=== PATIENT | female | born 1995 | race African-American/Black ===

== ENCOUNTER 2019-08-21 15:10 | Inpatient (IN) | payer OTHER, SELFPAY ==
[2019-08-21 15:49] LABS: #Basophils 0.1 thou/uL (0.0-0.2); #Eosinphils 0.2 thou/uL (0.0-0.7); #Lymphocytes 2.3 thou/uL (1.20-3.40); #Monocytes 0.9 thou/uL (0.11-0.59); #Neutrophils 12.7 thou/uL (1.40-6.50); %Basophils 0.4 % (0.0-1.0); %Lymphocytes 14.5 % (21.0-51.0); %Monocytes 5.5 % (0.0-10.0); %Neutrophils 78.6 % (42.0-75.0); Hemoglobin 10.7 g/dL (12.0-16.0); Mean Corpuscular HGB CONC 31.5 g/dL (32.0-36.0); Mean Corpuscular Hemoglobin 28.1 pg (27.0-31.0); Mean Platelet Volume 7.7 fL (7.4-10.4); Platelet Count 360 thou/uL (130-400); RBC Distribution Width 13.3 % (11.5-14.5); Red Blood Cell (RBC) Count 3.81 mill/uL (4.20-5.40); White Blood Cell (WBC) Count 16.1 thou/uL (4.8-10.8)
[2019-08-21] MEDS ORDERED: Morphine 4 MG/ML VIAL ONE (15:59)
[2019-08-21] MEDS ORDERED: Ketorolac Tromethamine 30 MG/ML VIAL ONE (16:00)
[2019-08-21] MEDS ORDERED: Piperacillin/Tazobactam 4.5 GM VIAL ONE (16:00)
[2019-08-21 16:16] LABS: ALT (SGPT) 23 U/L (8-55); AST (SGOT) 24 U/L (5-34); Albumin 3.9 g/dL (3.5-5.0); Alkaline Phosphatase 86 U/L (40-110); Anion Gap 16 mmol/L (10-20); BUN (Urea Nitrogen) 11 mg/dL (7.0-18.7); Bilirubin, Total 0.3 mg/dL (0.2-1.2); Calc. Creatinine Clearance 0 mL/min (70-130); Calcium 9.2 mg/dL (7.8-10.44); Carbon Dioxide 19 mmol/L (22-29); Chloride 103 mmol/L (98-107); Estimated GFR-MDRD Greater than 90; Globulin 4.9 g/dL (2.4-3.5); Glucose 83 mg/dL (70-105); Potassium 4.4 mmol/L (3.5-5.1); Protein, Total 8.8 g/dL (6.0-8.3); Sodium 134 mmol/L (136-145)
[2019-08-21] MEDS ORDERED: Clindamycin/D5W 900 mg/50 ml Premix Bag ONE (17:10)
[2019-08-21] MEDS ORDERED: Ondansetron PF 4 MG/2 ML Vial ONE (17:10)
--- NOTE | 2019-08-21 18:38 | PDOC.FPRHP ---
- History of Present Illness Chief Complaint: Open wounds in groin & axilla History of Present Illness: Patient is a 23 yo female with PMHx of Hiadrenitis suppurativa (diagnosed age 21 ) who presents with complaint of pain in both axilla and her groin/vaginal area. She has multiple sores in these areas that started in Sep 2018 and have become progressively worse since. She has seen multiple physicians and has received various antibiotics treatments, most recently Clindamycin. She has also been hospitalized at [facility] in [place] earlier this year with similar symptoms. During that hospitalization she says she received antibiotics but was sent home. Denies ever having had surgery for her lesions. Today patient states that her pain has become significantly worse and she is now oozing blood & pus from several of the sites which prompted her to come to ED. ED Course: Given vanc, zosyn, and clinda. Also concern for an elevated WBC count of 16.1, given Morphine 4 mg for pain control. - Allergies/Adverse Reactions Allergies Allergy/AdvReac Type Severity Reaction Status Date / Time No Known Drug Allergies Allergy Verified 08/21/19 22:06 - Home Medications Medication Instructions Recorded Confirmed Type No Known 08/21/19 08/21/19 History - History PMHx: Hidradenitis suppurativa PSHx: none FHx: mother with breast cancer dx age 35, multiple maternal female family members with breast cancer Social: smokes 5 cigarettes/day, drinks EtOH socially - Review of Systems General: denies: fever/chills, weight/appetite/sleep changes, fatigue ENT: denies: nasal congestion Respiratory: denies: cough, congestion, shortness of breath Cardiovascular: denies: chest pain, edema Gastrointestinal: denies: nausea, vomiting, diarrhea, abdominal pain Genitourinary: denies: dysuria Skin: reports: lesions Musculoskeletal: denies: pain, tenderness, swelling Neurological: denies: numbness, weakness - Vital signs BP: 135/85 HR: 90 RR: 18 Tmax: 98.1F Pox: 96% on RA Wt: 111 kg - Physical Exam Constitutional: NAD, awake, alert and oriented, well developed HEENT: normocephalic and atraumatic, EOMI, conjunctiva clear, no scleral icterus , grossly normal vision, grossly normal hearing, MMM Neck: supple Heart: RRR, normal S1/S2, no murmurs/rubs/gallops, pulses present, no edema Lungs: CTAB, no respiratory distress, good air movement, no rales/rhonchi, no wheezing Abdomen: soft, non-tender, bowel sounds present Musculoskeletal: normal structure, normal tone, ROM grossly normal Neurological: no focal deficit, normal sensation -Skin: multiple open areas to skin, severely TTP, with thick white discharge/drainage present in areas of bilateral axilla, groin, and vagina. Heme/Lymphatic: no unusual bruising or bleeding Psychiatric: normal mood and affect, intact recent and remote memory FMR H&P: Results - Labs Result Diagrams: 08/21/19 15:33 08/21/19 15:33 Lab results: WBC 16.1 thou/uL (4.8-10.8) H 08/21/19 15:33 Hgb 10.7 g/dL (12.0-16.0) L 08/21/19 15:33 Hct 33.9 % (36.0-47.0) L 08/21/19 15:33 MCV 89.0 fL (78.0-98.0) 08/21/19 15:33 Plt Count 360 thou/uL (130-400) 08/21/19 15:33 Neutrophils % 78.6 % (42.0-75.0) H 08/21/19 15:33 Sodium 134 mmol/L (136-145) L 08/21/19 15:33 Potassium 4.4 mmol/L (3.5-5.1) 08/21/19 15:33 Chloride 103 mmol/L (98-107) 08/21/19 15:33 Carbon Dioxide 19 mmol/L (22-29) L 08/21/19 15:33 BUN 11 mg/dL (7.0-18.7) 08/21/19 15:33 Creatinine 0.68 mg/dL (0.6-1.1) 08/21/19 15:33 Glucose 83 mg/dL (70-105) 08/21/19 15:33 Lactic Acid 1.0 mmol/L (0.5-2.2) 08/21/19 15:33 Calcium 9.2 mg/dL (7.8-10.44) 08/21/19 15:33 Total Bilirubin 0.3 mg/dL (0.2-1.2) 08/21/19 15:33 AST 24 U/L (5-34) 08/21/19 15:33 ALT 23 U/L (8-55) 08/21/19 15:33 Alkaline Phosphatase 86 U/L (40-110) 08/21/19 15:33 Serum Total Protein 8.8 g/dL (6.0-8.3) H 08/21/19 15:33 Albumin 3.9 g/dL (3.5-5.0) 08/21/19 15:33 FMR H&P: A/P - Problem List (1) Hidradenitis suppurativa Current Visit: Yes Status: Acute Code(s): L73.2 - HIDRADENITIS SUPPURATIVA (2) Leukocytosis, unspecified Current Visit: Yes Status: Acute Code(s): D72.829 - ELEVATED WHITE BLOOD CELL COUNT, UNSPECIFIED Qualifiers: Leukocytosis type: unspecified Qualified Code(s): D72.829 - Elevated white blood cell count, unspecified - Plan Patient is a 23 yo female with complaint of groin pain is admitted for flare of Hidradrenitis suppurativa: #Hidradenitis Suppurativa, Good Stage III -given Clinda, Vanc, & Zosyn in ED--plan to continue Clinda PO and topical as well as Vancomycin -Start prednisone 40 daily -Consider starting adjunctive therapy including OCPs, Metformin, and/or spironolactone -Consult wound care -Check A1c given close correlation with metabolic syndromes -Consult General Surgery tomorrow AM--Dr. Hernández, appreciate recs -Will need Dermatology appt set up at discharge, will need close regular follow up #Leukocytosis -admission WBC 16.1 -Abx as above -AM CBC VTE: SCD Diet: Regular Code: Full Dispo: Stable, admitted to observation on surgical unit. Consult General Surgery for further management recommendations. Continue Clindamycin & Vancomycin for antibiotic coverage. Anticipate LOS <48 hrs. FMR H&P: Upper Level - Pertinent history 23 yo F w/hx of hidradenitis suppurativa here with complaint of painful draining tracts in her axilla and inguinal area. She has had multiple hospitalizations in the past and has never had good control of her disease since dx about 2 years ago. She states that she has had these lesions since about September of this year. She states that they drain all the time and that she keeps gauze under her arms to help with the drainage. She denies an acute worsening of symptoms. She denies fever, chills, n/v. She states that she came to the ER today because she was hoping to get a better answer than oral abx which is what she has been getting from her PCP in [place]. In the ER she was given vanc, zosyn, and clinda. There was also concern for an elevated WBC count PMHx Hidradenitis suppurativa No surgical hx Denies smoking, etoh, or drugs - Pertinent findings See senior international tax manager note for full ROS, PE, vitals, and labs ROS General denies fever or chills CV Denies CP, palpitation, or peripheral edema Resp Denies SOB or cough GI denies n/v/d/c or abdominal pain denies increased frequency or dysuria Neuro denies numbness or weakness Skin complains of painful draining lesions in axilla and inguinal areas PE General A&O x4, NAD HEENT NCAT CV RRR, no murmur Resp CTA, no respiratory distress Abd non tender, no distension, normal BS Extremities no edema Neuro no focal deficits, CN II-XII grossly intact Skin Large sinus tracts draining purulent malodorous material in b/l axilla and inguinal folds. These are very TTP. There is no surrounding erythema or streaking - Plan Date/Time: 08/21/191836 IOg DO, have evaluated this patient and agree with findings/plan as outlined by senior international tax manager resident. Pertinent changes/additions are listed here. 1.Hidradenitis SupporitivaLatisha Stage III -Continue clinda and vanc. DC zosyn -Start prednisone -May consider other adjuncts such as metformin or spironolactone -Pt will need to see derm in outpatient setting. -Consult wound care. -Will check A1c due to strong association with insulin resistance -Surgical consult 2.Leukocytosis -Abx as above, continue to monitor PPx SCD Diet Regular Code Full Dispo: pt is currently in good condition. Will monitor on obs. Would expect 1-2 day hospital course to help with the acute symptoms. Unfortunately, it is unlikely that this will resolve during the hospitalization and will need chronic management out patient. Addendum - Attending - Attending Attestation Date/Time: 08/21/192021 I personally evaluated the patient and discussed the management with Drs. Sanchez and Javi I agree with the History, Examination, Assessment and Plan documented above with any addition or exceptions noted below. Initially started in 2013. No previous ppx treatment. Only treatment for super- infections. Gen surg consult in AM. Wound care to follow. Continue clindamycin. Due to severity at this time and concern for possible MRSA will continue VANC. Has not been under care of physician in almost 1 year. Concern for possible sinus trac to vaginal wall. Imaging ordered. Patient reporting discharge. Rule out other causes as well. Continue oral and IV pain control. Patient possibly might benefit from antiinflammatory agent. However, due to concern for severity with super infection will hold and continue VANC. Patient will need to establish with PCP, gen surg, and derm. Sorensen
[2019-08-21] MEDS ORDERED: Acetaminophen 325 MG TAB PO PRN (19:47)
[2019-08-21] MEDS ORDERED: Calcium Carbonate 500 MG ChewTAB PO PRN (19:47)
[2019-08-21 19:59] VITALS: BMI 34.2
[2019-08-21] MEDS ORDERED: Morphine 2 MG/ML SYRINGE SLOW IVP PRN (20:14)
[2019-08-21] MEDS ORDERED: HYDROcodone/Acetaminophen 7.5/325 mg Tablet PO PRN (21:04)
[2019-08-21] MEDS: HYDROcodone/Acetaminophen 7.5/325 mg Tablet PO PRN (22:15)
[2019-08-21] MEDS: Clindamycin 150 MG CAP PO SCH (22:17)
[2019-08-21] MEDS: Vancomycin HCl 1.75 GM in Sodium Chloride 0.9% 250 ML 300 ML IVPB SCH (22:18)
[2019-08-21 22:44] LABS: Hemoglobin A1c 5.7 % (4.0-6.0)
[2019-08-22 05:43] LABS: #Eosinphils 0.3 thou/uL (0.0-0.7); #Lymphocytes 1.8 thou/uL (1.20-3.40); #Monocytes 1.1 thou/uL (0.11-0.59); #Neutrophils 9.7 thou/uL (1.40-6.50); %Basophils 0.4 % (0.0-1.0); %Eosinophils 2.2 % (0.0-10.0); %Lymphocytes 13.8 % (21.0-51.0); %Monocytes 8.5 % (0.0-10.0); %Neutrophils 75.1 % (42.0-75.0); Hemoglobin 9.3 g/dL (12.0-16.0); Mean Corpuscular HGB CONC 31.8 g/dL (32.0-36.0); Mean Corpuscular Hemoglobin 28.1 pg (27.0-31.0); Mean Corpuscular Volume 88.2 fL (78.0-98.0); Mean Platelet Volume 6.6 fL (7.4-10.4); Platelet Count 365 thou/uL (130-400); RBC Distribution Width 13.2 % (11.5-14.5); Red Blood Cell (RBC) Count 3.33 mill/uL (4.20-5.40); White Blood Cell (WBC) Count 12.9 thou/uL (4.8-10.8)
[2019-08-22 06:10] LABS: ALT (SGPT) 18 U/L (8-55); AST (SGOT) 14 U/L (5-34); Albumin 3.1 g/dL (3.5-5.0); Alkaline Phosphatase 72 U/L (40-110); Anion Gap 11 mmol/L (10-20); BUN (Urea Nitrogen) 9 mg/dL (7.0-18.7); Bilirubin, Total 0.3 mg/dL (0.2-1.2); Calc. Creatinine Clearance 233 mL/min (70-130); Calcium 8.5 mg/dL (7.8-10.44); Carbon Dioxide 23 mmol/L (22-29); Chloride 105 mmol/L (98-107); Estimated GFR-MDRD Greater than 90; Globulin 4.1 g/dL (2.4-3.5); Glucose 95 mg/dL (70-105); Potassium 3.7 mmol/L (3.5-5.1); Protein, Total 7.2 g/dL (6.0-8.3); Sodium 135 mmol/L (136-145)
[2019-08-22] MEDS: HYDROcodone/Acetaminophen 7.5/325 mg Tablet PO PRN ×2 (06:41→23:47)
[2019-08-22] MEDS: Clindamycin 150 MG CAP PO SCH ×3 (06:42→20:53)
[2019-08-22] MEDS: Vancomycin HCl 1.75 GM in Sodium Chloride 0.9% 250 ML 300 ML IVPB SCH ×2 (06:43→19:13)
--- NOTE | 2019-08-22 06:52 | PDOC.FM ---
- Subjective Subjective: Pt states she is overall feeling well this morning. Rates her pain at 7/10 and states the pain medication is helping. Denies fevers. Sometimes feels dizzy, denies nausea. - Objective MAR Reviewed: Yes Vital Signs & Weight: Vital Signs (12 hours) Temp Pulse Resp BP BP Pulse Ox 08/22/19 04:00 98.3 F 85 18 105/70 96 08/21/19 23:58 97.5 F L 97 18 127/76 97 08/21/19 19:37 97.3 F L 92 18 122/83 95 Weight Weight 111.13 kg Result Diagrams: 08/22/19 04:55 08/22/19 04:55 Phys Exam - Physical Examination Constitutional: NAD (pt appears comfortable) Respiratory: no wheezing, clear to auscultation bilateral Cardiovascular: RRR, no significant murmur Gastrointestinal: soft, non-tender Musculoskeletal: no edema Deviation from normal: deep ulcerated lesions in both axilla, draining pus, unchanged from photos. -: did not inspect perineal wound today. Dx/Plan (1) Hidradenitis suppurativa Code(s): L73.2 - HIDRADENITIS SUPPURATIVA Status: Acute (2) Leukocytosis, unspecified Code(s): D72.829 - ELEVATED WHITE BLOOD CELL COUNT, UNSPECIFIED Status: Acute Qualifiers: Leukocytosis type: unspecified Qualified Code(s): D72.829 - Elevated white blood cell count, unspecified (3) Tobacco use Code(s): Z72.0 - TOBACCO USE Status: Acute - Plan Plan: Patient is a 23 yo female with complaint of groin pain is admitted for flare of Hidradrenitis suppurativa: Hidradenitis Suppurativa, Good Stage III Prediabetes -given Clinda, Vanc, & Zosyn in ED--plan to continue Clinda PO and topical as well as Vancomycin -Prednisone 40 daily -Consider starting adjunctive therapy including OCPs, Metformin, and/or spironolactone. These options were explained to the patient and mother this morning. -Wound care consulted. -A1C = 5.7%. Lipid panel added on to AM labs to further assess metabolic syndrome. -Consulted gen surgEdgar. Appreciate recs. Pt made NPO in case of surgery today. -Will need Dermatology appt set up at discharge, will need close regular follow up -Pain control w/ [place] Leukocytosis with left shift -admission WBC 16.1, improving today. -Abx as above -monitor, trend Normocytic Anemia - Hgb 9.3, MCV 88 - Anemia labs this AM. Iron, folate, B12, TIBC, ferritin. VTE: SCD Diet: Regular Code: Full Dispo: Stable, admitted to observation on surgical unit. Anticipate LOS <48 hrs. Pt is from [place] and needs PCP. Addendum - Attending - Attending Attestation Date/Time: 08/22/19 4091 I personally evaluated the patient and discussed the management with Dr. Hernández. I agree with the History, Examination, Assessment and Plan documented above with any addition or exceptions noted below. Patient here for hydratinitis with superimposed infection it appears. Broad spectrum abx and topical therapies. Consult General surgery as there is concern about the need for drainage but also fistula formation. Pain control as needed.
[2019-08-22] MEDS ORDERED: Adacel (T-DAP) 0.5 ML SYRINGE IM ONE (09:00)
[2019-08-22] MEDS ORDERED: FLU VACC QS2019-20(6MOS UP)/PF 60 MCG/0.5 ML SYRINGE IM ONE (09:00)
[2019-08-22 09:03] LABS: Cardiac Risk 3.3 (Less than 4.5)
[2019-08-22 09:28] LABS: Ferritin 27.05 ng/mL (10-291)
[2019-08-22] MEDS ORDERED: Dexamethasone 20 MG/5 ML VIAL ONE (09:33)
[2019-08-22] MEDS ORDERED: Ketorolac Tromethamine 30 MG/ML VIAL ONE (09:33)
[2019-08-22] MEDS ORDERED: PROPOFOL 200 MG/20 ML VIAL ONE (09:33)
[2019-08-22] MEDS ORDERED: Ondansetron PF 4 MG/2 ML Vial ONE (09:33)
[2019-08-22] MEDS ORDERED: Lidocaine 1% PF 5 ML VIAL ONE (09:33)
[2019-08-22] MEDS: Clindamycin 2% Cream 40 gm Tube VAG SCH ×3 (10:20→20:53)
[2019-08-22] MEDS: predniSONE 20 MG TAB PO SCH (10:20)
--- NOTE | 2019-08-22 13:18 | CON ---
DATE OF CONSULTATION: HISTORY OF PRESENT ILLNESS: Idris Núñez is a 23-year-old black female, 5 feet 11 inches, 245 pounds, 34 BMI, smokes half pack a day, has had problems with hidradenitis suppurativa, both groins, perilabial bilaterally, bilateral axilla, and inframammary breast. She has been hospitalized on antibiotics, has intolerable pain. Family Practice asked me to see her. Plan is for incision, drainage, debridement. She has active infected disease and she is not a candidate for an excision and flap closure at this time. I have explained these issues to the patient. ALLERGIES: NONE. SOCIAL HISTORY: Tobacco, half pack per day. Alcohol, rarely. The patient is working in an assembly line type work. MEDICATIONS: At home, none. In the hospital, she is on vancomycin, hydrocodone, and clindamycin. PAST MEDICAL HISTORY: Noncontributory otherwise. PHYSICAL EXAMINATION: VITAL SIGNS: Height 5 feet 11 inches, 245 pounds, 34 BMI, temperature 98.5, heart rate 78, blood pressure 113/73. HEAD, EARS, EYES, NOSE AND THROAT: Unremarkable. LUNGS: Clear to auscultation. CARDIAC: Regular rate and rhythm without murmur or gallop. ABDOMEN: Soft, obese, nontender. AXILLA: Bilateral axilla, multiple purulent sinuses, open granulating wound, left axilla larger than right. BREASTS: Inframammary disease, left more than right. Bilateral perilabial and perineal disease and thigh disease with purulent discharge and draining sinuses, exquisitely painful and tender. LABORATORY DATA: White count 12 and hemoglobin 9.3. Basic metabolic profile normal with normal renal function. Glucose 95. Hemoglobin A1c 5.7. ASSESSMENT AND PLAN: Hidradenitis suppurativa. Plan incision, drainage, debridement. As indicated, she will have open wounds. I have discussed with the patient and her mother. They understand these issues and consent. We will proceed today. Job ID: [id number]
[2019-08-22] MEDS ORDERED: Fentanyl 250 MCG/5 ML VIAL ONE (14:15)
[2019-08-22] MEDS ORDERED: Ondansetron HCl/PF 4 MG/2 ML Vial IVP PRN ×2 (14:48→15:48)
[2019-08-22] MEDS ORDERED: Promethazine HCl 25 MG/ML VIAL SLOW IVP PRN ×2 (14:48→15:48)
[2019-08-22] MEDS ORDERED: Promethazine HCl 25 MG/ML VIAL IM PRN (14:48)
[2019-08-22 15:22] LABS: BHCG - Serum Negative (NEGATIVE); Pregs Control Background? CLEAR/WHITE (CLR/WHITE); Pregs Control Bar Appear? YES (CONTROL BAR)
[2019-08-22] MEDS ORDERED: Lidocaine 1% w/Epinephrine 1:100K 20 ML VIAL ONE (15:33)
[2019-08-22] MEDS ORDERED: Bupivacaine 0.25% HCL 30 ML VIAL ONE (15:33)
[2019-08-22] MEDS ORDERED: HYDROmorphone 2 MG/ML VIAL SLOW IVP PRN (16:08)
[2019-08-22] MEDS ORDERED: Morphine Sulfate 2 MG/ML SYRINGE SLOW IVP PRN (16:08)
[2019-08-22] MEDS ORDERED: Meperidine HCl/PF 25 MG/ML VIAL SLOW IVP PRN (16:08)
[2019-08-22] MEDS ORDERED: traMADol HCl 50 MG TAB PO PRN (16:13)
[2019-08-22] MEDS ORDERED: Fentanyl 100 MCG/2 ML VIAL ONE ×2 (17:30→18:36)
[2019-08-22] MEDS ORDERED: HYDROmorphone 2 MG/ML VIAL ONE (17:38)
[2019-08-22] MEDS ORDERED: Sodium Chloride 0.9% 10 ML ONE (18:26)
[2019-08-22] MEDS: Enoxaparin Sodium 40 MG/0.4 ML SYRINGE SC SCH (18:33)
[2019-08-22] MEDS ORDERED: Promethazine HCl 25 MG/ML VIAL ONE (18:36)
--- NOTE | 2019-08-22 19:48 | OP ---
DATE OF PROCEDURE: 08/22/2019 PREOPERATIVE DIAGNOSIS: Hidradenitis suppurativa with multiple abscesses and sinuses in bilateral axilla, left paralabial and right paralabial and right buttocks and left buttocks. POSTOPERATIVE DIAGNOSIS: Hidradenitis suppurativa with multiple abscesses and sinuses in bilateral axilla, left paralabial and right paralabial and right buttocks and left buttocks. PROCEDURES PERFORMED: Excision of skin and subcutaneous tissue, resection excision with 10 blade, hidradenitis suppurativa in bilateral axilla, paralabial, and medial thighs and buttocks. ANESTHESIA: General. Wound Care Team arrived to place wound VAC on both axilla and dressed paralabial area and the thighs. DESCRIPTION OF PROCEDURE: The patient was taken to the operating room, where in the dorsal lithotomy position, both axilla, paralabial, groins were prepared with Betadine and draped in routine fashion. Cautery was used to excise extensive hidradenitis suppurativa, bilateral axilla excising the hair-bearing area that had multiple abscesses and sinuses and purulent discharge. Active disease excised. Hemostasis was gained with the cautery and both axilla, paralabial and groins after active skin and subcutaneous tissue resected, excised, debrided sharply with 10 blade and cautery. The patient had disease in her inferomedial left breast that was excised in addition. The patient tolerated the procedure well. Wound Care Team placed dressings. Job ID: [id number]
[2019-08-22] MEDS: Sulfameth/Trimethoprim DS 800-160mg TAB PO SCH (20:54)
[2019-08-22] MEDS: traMADol HCl 50 MG TAB PO PRN (21:01)
[2019-08-23] MEDS: Clindamycin 150 MG CAP PO SCH ×3 (02:23→08:54)
--- NOTE | 2019-08-23 06:36 | PDOC.FM ---
- Subjective Subjective: Pt is stable after surgery. She and her mother are nervous about being able to manage her wounds since pt lives at home by herself. Pt is nervous to go back to work with open wounds. She would like to return to light duty and take [address] Hernández present in room and updating pt on plan of care. Pt denies symptoms of lightheadedness, fatigue. She has had an appetite and ate without difficulty this morning. She complains of a sore in her butt crack which was not addressed on admission. This was examined w/ Dr. Hernández. - Objective MAR Reviewed: Yes Vital Signs & Weight: Vital Signs (12 hours) Temp Pulse Resp BP BP Pulse Ox 08/23/19 03:00 98.5 F 95 15 104/66 97 08/22/19 23:10 98.0 F 96 18 115/75 97 08/22/19 20:00 98 08/22/19 19:50 97.5 F L 99 15 129/81 98 Weight Admit Weight 111.13 kg Weight 111.13 kg I&O: 08/21/19 08/22/19 08/23/19 06:59 06:59 06:59 Intake Total 1080 Balance 1080 Result Diagrams: 08/23/19 08:54 08/22/19 04:55 Phys Exam - Physical Examination Constitutional: NAD (although anxious about managing her wounds) no respiratory distress Gastrointestinal: no distention Musculoskeletal: no edema Deviation from normal: Blood draining from left armpit in clots. R armpit wound vac removed -: sacral linear wound, non draining, open and dry between buttocks Dx/Plan (1) Hidradenitis suppurativa Code(s): L73.2 - HIDRADENITIS SUPPURATIVA Status: Acute (2) Leukocytosis, unspecified Code(s): D72.829 - ELEVATED WHITE BLOOD CELL COUNT, UNSPECIFIED Status: Acute Qualifiers: Leukocytosis type: unspecified Qualified Code(s): D72.829 - Elevated white blood cell count, unspecified (3) Tobacco use Code(s): Z72.0 - TOBACCO USE Status: Acute - Plan Plan: Patient is a 23 yo female with complaint of groin pain is admitted for flare of Hidradrenitis suppurativa: Hidradenitis Suppurativa, Good Stage III -Prednisone 40 daily -POD #1 from tissue resection of b/l armpits and b/l groin. Wound vacs removed. -Consider starting adjunctive therapy including OCPs, Metformin. Avoid spironolactone due to teratogenic effects. -Wound care consulted. They will educate pt this AM and give her starter kit w/ supplies -Case mgmt consulted for home health wound care assistance. -Consulted gen surg, Edgar. Appreciate recs. Rec discontinuation of clindamycin oral. Bactrim for 5-6 days. Pt may wash w/ soap and water. Dry dressings with supplies or kotex pads may be used. F/U w/ him in 2-3 weeks outpatient. -Will need Dermatology appt set up at discharge, will need close regular follow up -Pain control w/ Tramadol, Tylenol, and ibuprofen. Prediabetes -A1C = 5.7%. Lipid panel WNL. Leukocytosis with left shift -admission WBC 16.1, improving today. -Abx as above -monitor, trend Normocytic Anemia - Hgb 9.3, MCV 88 - Anemia labs this AM. Iron, folate, B12, TIBC, ferritin. Low iron. Possible component of anemia of chronic disease. - Electrophoresis pending. - Started pt on Ferrous sulfate BID since she will be draining blood for some time w/ these wounds and VTE: SCD Diet: Regular Code: Full Dispo: Stable, inpt surgical. Pt is from [place] and states she has PCP there. Per Edgar, she is stable to discharge today from his standpoint. Addendum - Attending - Attending Attestation Date/Time: 08/23/19 2236 I personally evaluated the patient and discussed the management with Dr. Hernández. I agree with the History, Examination, Assessment and Plan documented above with any addition or exceptions noted below. Patient stable for discharge per General Surgery and will need outpatient wound care, adequate even to do self wound care per surgery. Will work on setting this up and hopeful discharge on PO abx later today.
[2019-08-23] MEDS ORDERED: Ferrous Sulfate 325 MG TAB PO SCH (08:45)
[2019-08-23] MEDS: Enoxaparin Sodium 40 MG/0.4 ML SYRINGE SC SCH (08:53)
[2019-08-23] MEDS: predniSONE 20 MG TAB PO SCH (08:55)
[2019-08-23] MEDS: Sulfameth/Trimethoprim DS 800-160mg TAB PO SCH ×2 (08:55→19:49)
[2019-08-23] MEDS: traMADol HCl 50 MG TAB PO PRN ×2 (08:55→15:14)
--- NOTE | 2019-08-23 09:32 | PRG ---
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 She yesterday underwent excision of extensive hidradenitis suppurativa, skin and subcutaneous tissue, left and right axilla, bilateral groins. She demonstrates to me the presacral open granulating wound that she has been dealing with. That appears that is healthy without infection, that appears to be a manifestation of her hidradenitis and probably not pilonidal cyst. I did send tissue. Hopefully, this is not some unusual manifestation of Langerhans histiocytosis, more likely it is hidradenitis. We would recommend that she will be discharged home on Bactrim DS p.o. b.i.d. for 7 to 10 days. She will have a followup in my office in about a week and a half. We will arrange that. That will be in the discharge plans. I have discussed with family practice and her pain should be manageable on Tylenol 1000 mg p.o. q.i.d. and ibuprofen [id number] 200 mg three tablets 4 times a day. She can take Tylenol and ibuprofen together, Ultram if necessary, although probably not necessary. I have told her she can wash her wounds daily with soap and water in the shower and apply saline wet-to-dry dressing or dry dressing is able control the soilage. I have reiterated to her that she does not need to be on antibiotics for the duration of the open wounds. These open wounds will present for several months, will take a while to heal. She will have a followup in my office in a week and a half, and I will see her as needed in this hospitalization. Please call if necessary. A slight amount of bleeding is not unusual with this. Job ID: [id number]
[2019-08-23 10:07] LABS: Band 1 % (5-11); Hemoglobin 9.2 g/dL (12.0-16.0); Lymphocytes 10 % (21-51); MDiff Complete? YES; Mean Corpuscular Hemoglobin 28.5 pg (27.0-31.0); Mean Corpuscular Volume 89.1 fL (78.0-98.0); Mean Platelet Volume 6.9 fL (7.4-10.4); Monocytes 5 % (0-10); Neutrophil 84 % (42-75); Platelet Count 449 thou/uL (130-400); Platelet Morphology Comment Appears Increased; RBC Distribution Width 13.1 % (11.5-14.5); Red Blood Cell (RBC) Count 3.22 mill/uL (4.20-5.40)
[2019-08-23] MEDS: Clindamycin 2% Cream 40 gm Tube VAG SCH (10:29)
--- NOTE | 2019-08-23 11:40 | PDOC.BPN ---
- Brief Progress Note Patient named above was under my care beginning on 08/21/2019 and is currently still hospitalized. She had surgery on 08/22/2019 and is recovering. She will require recovery and be off from all work duties for the next 2 weeks. Depending on the course of her recovery, she may require a third additional week. Please excuse her from all work duties for at least 2 weeks' time. She may return to light duty after that and can be reassessed by her PCP for return to full duty at that time. If you have any questions, you may call [phone]. Thank you, Nataliia Hernández MD [facility].
--- NOTE | 2019-08-23 12:12 | PQF ---
YASSINE GANNON CATHERINE MD *r [id number] SURG [id number] CLINICAL DOCUMENTATION IMPROVEMENT CLARIFICATION FORM: ICD-10 Updated PLEASE DO AN ADDENDUM TO THE PROGRESS NOTE WITH ANY DOCUMENTATION UPDATES OR ADDITIONS AND CARRY THROUGH TO DC SUMMARY. THANK YOU. DATE: 08/23/19 ATTN: Dr. Hernández Please exercise your independent, professional judgment in responding to the clarification form. Clinical indicators are provided on the bottom of this form for your review Please check appropriate box(es): [X] Sepsis due to: Hidradenitis suppurative with multiple abscesses - meets sepsis criteria w/ HR > 90 bpm and WBC of 16.1 [ ] Localized infection without sepsis [ ] Other diagnosis [ ] Unable to determine In addition, please specify: Present on Admission (POA): [x] Yes [ ] No [ ] Unable to determine For continuity of documentation, please document condition throughout progress notes and discharge summary. Thank You. CLINICAL INDICATORS - SIGNS / SYMPTOMS / LABS / RESULTS AND LOCATION IN MR WBC count (>12,000/mm^4 or <4000/mm^3 or 10% neuts, 10% bands)--> 08/21 wbc 16.1 per lab 08/21 Pulse 92-97 per [facility] ED([facility]): "physical examination revealed diffuse abscess and purulent drainage" RISK FACTORS / RESULTS AND LOCATION IN MR Infection/Bacteremia--> 08/22 Dr. Hernández: "HIDRADENTITIS SUPPURATIVE WITH MULTIPLE ABSCESS AND SINUSES IN BILATERAL AXILLA, LEFT PARALABIAL AND RIGHT BUTTOCKS AND LEFT BUTTOCKS" TREATMENTS / RESULTS AND LOCATION IN MR Daily CBC 08/21 orders Blood cultures 08/21/19 Surgery Consult 08/21 orders IV antibiotics - broad spectrum--> ED: 08/21 vancomycin 1gm iv; clindamycin 900 mg IV, Zosyn 4.5 gm IV to 08/21-08/22 Vancomycin 1.75gm Q8H per orders IV Fluids--> 08/21 1 liter NS bolus in ED per orders 08/22 Debridement (This form is maintained as a part of the permanent medical record) 2014 [employer]. All Rights Reserved Yolanda Freitas RN, BSN, CCDS [email or web address] [place]
[2019-08-23 14:09] LABS: Folate,Hemolysate 259.5 ng/mL (Not Estab.); Hematocrit 24.5 % (34.0-46.6); RBC Folate Test Component 1059 ng/mL (>498)
[2019-08-23] MEDS: Ondansetron ODT 4 MG TAB PO PRN (15:14)
[2019-08-23] MEDS: Ibuprofen 600 MG TAB PO PRN (17:12)
[2019-08-23] MEDS: Ferrous Sulfate 325 MG TAB PO SCH (17:12)
--- NOTE | 2019-08-24 05:25 | PDOC.FM ---
- Subjective Subjective: Pt is feeling well this morning. Pain is 6/10. Tramadol is helping her control pain. Wound care is changing her axillary wounds daily and groin wounds every time she urinates. Had questions about swingbed which were answered. Encouraged pt to ask wound care to teach her how to begin caring for her wounds while she is here. - Objective MAR Reviewed: Yes Vital Signs & Weight: Vital Signs (12 hours) Temp Pulse Resp BP BP Pulse Ox 08/24/19 03:11 98.3 F 97 18 105/62 97 08/23/19 23:19 98.3 F 97 18 107/68 99 08/23/19 20:00 98 08/23/19 19:00 98.2 F 94 16 102/62 98 Weight Admit Weight 111.13 kg Weight 111.13 kg I&O: 08/22/19 08/23/19 08/24/19 06:59 06:59 06:59 Intake Total 1080 2700 Balance 1080 2700 Result Diagrams: 08/23/19 08:54 08/22/19 04:55 Phys Exam - Physical Examination Constitutional: NAD no acute respiratory distress. Gastrointestinal: no distention -: dressings appear dry today without soilage. Dx/Plan (1) Hidradenitis suppurativa Code(s): L73.2 - HIDRADENITIS SUPPURATIVA Status: Acute (2) Leukocytosis, unspecified Code(s): D72.829 - ELEVATED WHITE BLOOD CELL COUNT, UNSPECIFIED Status: Acute Qualifiers: Leukocytosis type: unspecified Qualified Code(s): D72.829 - Elevated white blood cell count, unspecified (3) Tobacco use Code(s): Z72.0 - TOBACCO USE Status: Acute - Plan Plan: Patient is a 23 yo female with complaint of groin pain is admitted for flare of Hidradrenitis suppurativa: Hidradenitis Suppurativa, Good Stage III -Prednisone 40 daily -POD #2 from tissue resection of b/l armpits and b/l groin. Wound vacs removed. -Consider starting adjunctive therapy including OCPs, Metformin. Avoid spironolactone due to teratogenic effects. -Wound care consulted. They will educate pt daily while she is here and give her starter kit w/ supplies upon discharge. -Consulted gen surgEdgar. Appreciate recs. Bactrim for 5-6 days. Pt may wash w/ soap and water. Dry dressings with supplies or kotex pads may be used. F/U w / him in 2-3 weeks outpatient. -Will need Dermatology appt set up at discharge, will need close regular follow up -Pain control w/ Tramadol, Tylenol, and ibuprofen. Prediabetes -A1C = 5.7%. Lipid panel WNL. Leukocytosis with left shift -admission WBC 16.1, improving today. -Abx as above -monitor, trend Normocytic Anemia - Hgb 9.3, MCV 88 - Anemia labs this AM. Iron, folate, B12, TIBC, ferritin. Low iron. Possible component of anemia of chronic disease. - Electrophoresis pending. - Started pt on Ferrous sulfate BID since she will be draining blood for some time w/ these wounds and VTE: SCD Diet: Regular Code: Full Dispo: Stable, inpt surgical. Pt is from [place] and states she has PCP there. Per Edgar, she is stable to discharge today from his standpoint. Case mgmt consulted for home health wound care assistance. Pt insurance does not cover HH, however they may cover swingbed. This has been placed and awaiting placement. Addendum - Attending - Attending Attestation Date/Time: 08/24/19 0544 I personally evaluated the patient and discussed the management with Dr. Hernández. I agree with the History, Examination, Assessment and Plan documented above with any addition or exceptions noted below. Patient doing well POD2. She continues on abx and wound care and pain control as needed. Planned for swing bed for wound care at this time, CM on board.
[2019-08-24] MEDS: Ferrous Sulfate 325 MG TAB PO SCH ×2 (08:52→17:30)
[2019-08-24] MEDS: Sulfameth/Trimethoprim DS 800-160mg TAB PO SCH ×2 (08:53→20:01)
[2019-08-24] MEDS: Enoxaparin Sodium 40 MG/0.4 ML SYRINGE SC SCH (08:53)
[2019-08-24] MEDS: traMADol HCl 50 MG TAB PO PRN (15:52)
[2019-08-24] MEDS ORDERED: Senokot S 8.6-50 MG TAB PO SCH (21:00)
[2019-08-25] MEDS: traMADol HCl 50 MG TAB PO PRN ×2 (06:08→15:41)
--- NOTE | 2019-08-25 06:29 | PDOC.FM ---
- Subjective Subjective: Pt is feeling better this morning. Says her pain is well controlled with tramadol which she has required twice daily the past two days. Reports less drainage from her wounds. What bothers her most is the burning of her groin wounds after she urinates. - Objective MAR Reviewed: Yes Vital Signs & Weight: Vital Signs (12 hours) Temp Pulse Resp BP Pulse Ox 08/25/19 02:55 98.5 F 109 H 18 105/66 100 08/24/19 23:24 98.3 F 107 H 16 104/67 100 08/24/19 20:00 100 08/24/19 18:55 98.5 F 100 18 100/60 100 Weight Admit Weight 111.13 kg Weight 111.13 kg I&O: 08/23/19 08/24/19 08/25/19 06:59 06:59 06:59 Intake Total 3510 2035 Output Total 0 Balance 3510 2035 Result Diagrams: 08/23/19 08:54 08/22/19 04:55 Phys Exam - Physical Examination Constitutional: NAD Respiratory: no wheezing Cardiovascular: no significant murmur tachycardic rate, regular rhythm Gastrointestinal: soft Psychiatric: normal affect, A&O x 3 Dx/Plan (1) Hidradenitis suppurativa Code(s): L73.2 - HIDRADENITIS SUPPURATIVA Status: Acute (2) Leukocytosis, unspecified Code(s): D72.829 - ELEVATED WHITE BLOOD CELL COUNT, UNSPECIFIED Status: Acute Qualifiers: Leukocytosis type: unspecified Qualified Code(s): D72.829 - Elevated white blood cell count, unspecified (3) Tobacco use Code(s): Z72.0 - TOBACCO USE Status: Acute - Plan Plan: Patient is a 23 yo female with complaint of groin pain is admitted for flare of Hidradrenitis suppurativa: Hidradenitis Suppurativa, Good Stage III -POD #3 from tissue resection of b/l armpits and b/l groin. Wound vacs removed. -Consider starting adjunctive therapy including OCPs, Metformin upon discharge. Avoid spironolactone due to teratogenic effects. -Wound care consulted. They will educate pt daily while she is here and give her starter kit w/ supplies upon discharge. -Consulted gen surgEdgar. Appreciate recs. Bactrim. Pt may wash w/ soap and water. Dry dressings with supplies or kotex pads may be used. F/U w/ him in 2-3 weeks outpatient. -Will need Dermatology appt set up at discharge, will need close regular follow up -Pain control w/ Tramadol, Tylenol, and ibuprofen. Prediabetes -A1C = 5.7%. Lipid panel WNL. Leukocytosis with left shift -admission WBC 16.1, improving today. -Abx as above -monitor, trend Normocytic Anemia - Hgb 9.3, MCV 88 - Anemia labs this AM. Iron, folate, B12, TIBC, ferritin. Low iron. Possible component of anemia of chronic disease. - Electrophoresis pending. - Started pt on Ferrous sulfate BID since she will be draining blood for some time w/ these wounds. VTE: SCD Diet: Regular Code: Full Dispo: Stable, inpt surgical. Pt is from [place] and states she has PCP there. Case mgmt consulted for home health/placement at [facility] for wound care assistance. Pt insurance does not cover , however they may cover [facility]. This has been placed and awaiting placement. Addendum - Attending - Attending Attestation Date/Time: 08/25/19 3362 I personally evaluated the patient and discussed the management with Dr. Hernández. I agree with the History, Examination, Assessment and Plan documented above with any addition or exceptions noted below. Patient doing well, pain improved. Continues to require Tramadol but that is sufficient for her. She continues on wound care and Bactrim. Awaiting placement for wound care.
[2019-08-25] MEDS: Ferrous Sulfate 325 MG TAB PO SCH ×2 (08:35→16:51)
[2019-08-25] MEDS: Enoxaparin Sodium 40 MG/0.4 ML SYRINGE SC SCH (08:35)
[2019-08-25] MEDS: Sulfameth/Trimethoprim DS 800-160mg TAB PO SCH ×2 (08:35→20:15)
[2019-08-25] MEDS: Acetaminophen 500 MG TAB PO PRN (08:42)
[2019-08-25] MEDS: Ibuprofen 600 MG TAB PO PRN (08:43)
[2019-08-26] MEDS: traMADol HCl 50 MG TAB PO PRN (00:05)
[2019-08-26] MEDS: Ondansetron ODT 4 MG TAB PO PRN (01:14)
--- NOTE | 2019-08-26 06:14 | PDOC.FM ---
- Subjective Subjective: Pt's bandages clean and dry. She states her pain is about a 7/10. Less draining form lesions. Pt had nausea with vomiting overnight. Denies current N/V. - Objective Vital Signs & Weight: Vital Signs (12 hours) Temp Pulse Resp BP Pulse Ox 08/26/19 03:24 98.1 F 100 16 97/61 105 H 08/26/19 00:15 101/60 08/25/19 23:24 98.6 F 97 16 92/56 L 99 08/25/19 20:00 100 08/25/19 19:19 98.2 F 100 16 106/70 100 Weight Admit Weight 111.13 kg Weight 111.13 kg I&O: 08/24/19 08/25/19 08/26/19 06:59 06:59 06:59 Intake Total 3510 2035 1250 Output Total 0 Balance 3510 2035 1250 Result Diagrams: 08/26/19 06:42 08/22/19 04:55 Phys Exam - Physical Examination Constitutional: NAD HEENT: moist MMs, sclera anicteric Neck: no nodes, full ROM Respiratory: no wheezing, no rales, no rhonchi, clear to auscultation bilateral Cardiovascular: RRR, no rub Gastrointestinal: soft, non-tender, no distention, positive bowel sounds Musculoskeletal: no edema, pulses present Neurological: non-focal, moves all 4 limbs Psychiatric: normal affect, A&O x 3 Skin: normal turgor, cap refill <2 seconds Deviation from normal: surgical site covered with clean bandages in axillary folds,groin, L-breast Dx/Plan (1) Hidradenitis suppurativa Code(s): L73.2 - HIDRADENITIS SUPPURATIVA Status: Acute (2) Leukocytosis, unspecified Code(s): D72.829 - ELEVATED WHITE BLOOD CELL COUNT, UNSPECIFIED Status: Acute Qualifiers: Leukocytosis type: unspecified Qualified Code(s): D72.829 - Elevated white blood cell count, unspecified (3) Tobacco use Code(s): Z72.0 - TOBACCO USE Status: Acute - Plan Plan: Patient is a 23 yo female with complaint of groin pain is admitted for flare of Hidradrenitis suppurativa: Hidradenitis Suppurativa, Good Stage III -POD #3 from tissue resection of b/l armpits and b/l groin, L -breast. Wound vacs removed. -Consider starting adjunctive therapy including OCPs, Metformin upon discharge. Avoid spironolactone due to teratogenic effects. -Wound care consulted. They will educate pt daily while she is here and give her starter kit w/ supplies upon discharge. -Consulted gen surg, Edgar. Appreciate recs. Bactrim. Pt may wash w/ soap and water. Dry dressings with supplies or kotex pads may be used. F/U w/ him in 2-3 weeks outpatient. -Will need Dermatology appt set up at discharge, will need close regular follow up -Pain control w/ Tramadol, Tylenol, and ibuprofen. Prediabetes -A1C = 5.7%. Lipid panel WNL. Leukocytosis with left shift -admission WBC 16.1 --> 22 -Abx as above -monitor, trend Normocytic Anemia - Hgb 9.3, MCV 88 - Anemia labs. Iron, folate, B12, TIBC, ferritin. Low iron. Possible component of anemia of chronic disease. - Electrophoresis pending. - Started pt on Ferrous sulfate BID since she will be draining blood for some time w/ these wounds. VTE: SCD Diet: Regular Code: Full Dispo: Stable, inpt surgical. Pt is from [place] and states she has PCP there. Case mgmt consulted for home health/placement at [facility] for wound care assistance. Pt insurance does not cover , however they may cover [facility]. This has been placed and awaiting placement. Addendum - Attending - Attending Attestation Date/Time: 08/26/19 7334 I personally evaluated the patient and discussed the management with Dr. Plascencia. I agree with the History, Examination, Assessment and Plan documented above with any addition or exceptions noted below.
[2019-08-26 07:23] LABS: #Eosinphils 0.6 thou/uL (0.0-0.7); #Lymphocytes 2.9 thou/uL (1.20-3.40); #Monocytes 1.3 thou/uL (0.11-0.59); #Neutrophils 11.7 thou/uL (1.40-6.50); %Basophils 0.2 % (0.0-1.0); %Eosinophils 3.5 % (0.0-10.0); %Lymphocytes 17.7 % (21.0-51.0); %Monocytes 7.9 % (0.0-10.0); %Neutrophils 70.8 % (42.0-75.0); Hemoglobin 6.1 g/dL (12.0-16.0); Mean Corpuscular HGB CONC 32.8 g/dL (32.0-36.0); Mean Corpuscular Hemoglobin 29.5 pg (27.0-31.0); Mean Corpuscular Volume 89.9 fL (78.0-98.0); Mean Platelet Volume 6.4 fL (7.4-10.4); Platelet Count 375 thou/uL (130-400); RBC Distribution Width 13.6 % (11.5-14.5); Red Blood Cell (RBC) Count 2.06 mill/uL (4.20-5.40); White Blood Cell (WBC) Count 16.5 thou/uL (4.8-10.8)
[2019-08-26] MEDS: Enoxaparin Sodium 40 MG/0.4 ML SYRINGE SC SCH (08:28)
[2019-08-26] MEDS: Sulfameth/Trimethoprim DS 800-160mg TAB PO SCH ×2 (08:29→20:50)
[2019-08-26] MEDS: Ferrous Sulfate 325 MG TAB PO SCH ×2 (08:29→16:11)
[2019-08-26] MEDS: Acetaminophen 500 MG TAB PO PRN (13:22)
[2019-08-26] MEDS: Ibuprofen 600 MG TAB PO PRN (13:22)
[2019-08-26 19:57] LABS: Hemoglobin 7.8 g/dL (12.0-16.0)
[2019-08-27] MEDS: traMADol HCl 50 MG TAB PO PRN ×2 (05:35→17:20)
--- NOTE | 2019-08-27 06:22 | PDOC.FM ---
- Subjective Subjective: Pt states that post transfusion she has had less dizziness. Denies any N/V. pain / in axilla. - Objective Vital Signs & Weight: Vital Signs (12 hours) Temp Pulse Resp BP BP Pulse Ox 08/27/19 03:29 98.8 F 96 16 103/67 98 08/26/19 23:25 98.4 F 94 16 104/71 99 08/26/19 20:51 97.8 F 92 16 108/73 100 08/26/19 20:20 98 Weight Admit Weight 111.13 kg Weight 111.13 kg I&O: 08/25/19 08/26/19 08/27/19 06:59 06:59 06:59 Intake Total 2035 1790 1550 Output Total 0 400 Balance 2035 1390 1550 Result Diagrams: 08/27/19 08:52 08/22/19 04:55 Phys Exam - Physical Examination Constitutional: NAD HEENT: moist MMs, sclera anicteric Neck: supple, full ROM Respiratory: no wheezing, no rales, no rhonchi, clear to auscultation bilateral Cardiovascular: RRR, no significant murmur, no rub Gastrointestinal: soft, non-tender, no distention, positive bowel sounds Musculoskeletal: pulses present Neurological: non-focal, moves all 4 limbs Psychiatric: normal affect, A&O x 3 Skin: normal turgor, cap refill <2 seconds Deviation from normal: B axilla and groin bandages clean and dry. Dx/Plan (1) Hidradenitis suppurativa Code(s): L73.2 - HIDRADENITIS SUPPURATIVA Status: Acute (2) Leukocytosis, unspecified Code(s): D72.829 - ELEVATED WHITE BLOOD CELL COUNT, UNSPECIFIED Status: Acute Qualifiers: Leukocytosis type: unspecified Qualified Code(s): D72.829 - Elevated white blood cell count, unspecified (3) Tobacco use Code(s): Z72.0 - TOBACCO USE Status: Acute (4) Acute blood loss anemia Code(s): D62 - ACUTE POSTHEMORRHAGIC ANEMIA Status: Acute - Plan Plan: Patient is a 23 yo female with complaint of groin pain is admitted for flare of Hidradrenitis suppurativa: Hidradenitis Suppurativa, Good Stage III -POD #3 from tissue resection of b/l armpits and b/l groin, L -breast. Wound vacs removed. -Consider starting adjunctive therapy including OCPs, Metformin started 08/27. Avoid spironolactone due to teratogenic effects. -Wound care consulted. They will educate pt daily while she is here and give her starter kit w/ supplies upon discharge. -Consulted gen surgEdgar. Appreciate recs. Bactrim. Pt may wash w/ soap and water. Dry dressings with supplies or kotex pads may be used. F/U w/ him in 2-3 weeks outpatient. -Will need Dermatology appt set up at discharge, will need close regular follow up -Pain control w/ Tramadol, Tylenol, and ibuprofen. Symptomatic Acute Blood Loss Anemia -Hgb dropped gradually post surgery to 6.1. Transfused 1 unit pRBC on 08/26. - Hbg at recheck 7.8 - Hgb pending this AM. Prediabetes -A1C = 5.7%. Lipid panel WNL. - start 500 mg Metformin once a day. consider titrating dose up outpatient. Leukocytosis with left shift -admission WBC 16.1 --> 22 -Abx as above -monitor, trend Normocytic Anemia - Hgb 9.3, MCV 88 - Anemia labs. Iron, folate, B12, TIBC, ferritin. Low iron. Possible component of anemia of chronic disease. - Electrophoresis pending. - Started pt on Ferrous sulfate BID since she will be draining blood for some time w/ these wounds. VTE: SCD Diet: Regular Code: Full Dispo: Stable, inpt surgical. Pt is from [place] and states she has PCP there. Case mgmt consulted for home health/placement at [facility] for wound care assistance. Pt insurance does not cover , however they may cover [facility]. This has been placed and awaiting placement. Addendum - Attending - Attending Attestation Date/Time: 08/27/19 5917 I personally evaluated the patient and discussed the management with the team this AM. I agree with the History, Examination, Assessment and Plan documented above with any addition or exceptions noted below. Patient comfortable this AM, she says her wounds don't hurt that bad. Denies cp /sob/f/c. On exam her dressings are c/d/i. She is talking on the phone. Await CM results for swing vs HH.
[2019-08-27] MEDS: Ferrous Sulfate 325 MG TAB PO SCH ×2 (08:12→16:05)
[2019-08-27] MEDS: Sulfameth/Trimethoprim DS 800-160mg TAB PO SCH ×2 (08:13→19:41)
[2019-08-27] MEDS: metFORMIN 500 MG TAB PO SCH (08:13)
[2019-08-27] MEDS: Enoxaparin Sodium 40 MG/0.4 ML SYRINGE SC SCH (08:13)
[2019-08-27 09:06] LABS: Hemoglobin 7.8 g/dL (12.0-16.0)
[2019-08-27] MEDS: Acetaminophen 500 MG TAB PO PRN (13:52)
[2019-08-27] MEDS: Ibuprofen 600 MG TAB PO PRN ×2 (13:52→19:41)
[2019-08-27] MEDS: Ondansetron ODT 4 MG TAB PO PRN (16:08)
[2019-08-28] MEDS: traMADol HCl 50 MG TAB PO PRN ×2 (03:47→20:18)
--- NOTE | 2019-08-28 06:08 | PDOC.FM ---
- Subjective Subjective: Pt is doing well today. Pain controlled. She denies fever, chills. She would like swing bed in [place] or . - Objective Vital Signs & Weight: Vital Signs (12 hours) Temp Pulse Resp BP Pulse Ox 08/27/19 23:18 98.3 F 75 16 119/72 100 08/27/19 19:20 98.3 F 90 18 113/74 99 Weight Admit Weight 111.13 kg Weight 111.13 kg I&O: 08/26/19 08/27/19 08/28/19 06:59 06:59 06:59 Intake Total 1790 1550 2155 Output Total 400 Balance 1390 1550 2155 Result Diagrams: 08/28/19 14:07 08/22/19 04:55 Phys Exam - Physical Examination Constitutional: NAD HEENT: PERRLA Respiratory: no wheezing, clear to auscultation bilateral Cardiovascular: RRR, no significant murmur Gastrointestinal: soft, non-tender Musculoskeletal: no edema, pulses present Deviation from normal: Axilla, L breast, Groin wounds properly bandaged, non draining. Dx/Plan (1) Acute blood loss anemia Code(s): D62 - ACUTE POSTHEMORRHAGIC ANEMIA Status: Acute (2) Hidradenitis suppurativa Code(s): L73.2 - HIDRADENITIS SUPPURATIVA Status: Acute (3) Leukocytosis, unspecified Code(s): D72.829 - ELEVATED WHITE BLOOD CELL COUNT, UNSPECIFIED Status: Acute Qualifiers: Leukocytosis type: unspecified Qualified Code(s): D72.829 - Elevated white blood cell count, unspecified (4) Tobacco use Code(s): Z72.0 - TOBACCO USE Status: Acute - Plan Plan: Patient is a 23 yo female with complaint of groin pain is admitted for flare of Hidradrenitis suppurativa: Hidradenitis Suppurativa, Good Stage III -POD #3 from tissue resection of b/l armpits and b/l groin, L -breast. Wound vacs removed. -Consider starting adjunctive therapy including OCPs, Metformin started 08/27. Avoid spironolactone due to teratogenic effects. -Wound care consulted. They will educate pt daily while she is here and give her starter kit w/ supplies upon discharge. -Consulted gen surg, [place]. Appreciate recs. Bactrim. Pt may wash w/ soap and water. Dry dressings with supplies or kotex pads may be used. F/U w/ him in 2-3 weeks outpatient. -Will need Dermatology appt set up at discharge, will need close regular follow up -Pain control w/ Tramadol, Tylenol, and ibuprofen. Symptomatic Acute Blood Loss Anemia -Hgb dropped gradually post surgery to 6.1. Transfused 1 unit pRBC on 08/26. Hgb stable 08/27. - Pending Hgb electrophoresis, Retic, Peripheral smear Prediabetes -A1C = 5.7%. Lipid panel WNL. - start 500 mg Metformin once a day. consider titrating dose up outpatient. Leukocytosis with left shift -admission WBC 16.1 --> 22 -Abx as above -monitor, trend Normocytic Anemia - Hgb 9.3, MCV 88 - Anemia labs. Iron, folate, B12, TIBC, ferritin. Low iron. Possible component of anemia of chronic disease. - Electrophoresis pending. - Started pt on Ferrous sulfate BID since she will be draining blood for some time w/ these wounds. VTE: SCD Diet: Regular Code: Full Dispo: Stable, inpt surgical. Pending placement. Likely will not qualify for swingbed, so will require outpt follow up, pending CM. Addendum - Attending - Attending Attestation Date/Time: 08/29/19 9791 I personally evaluated the patient and discussed the management with Dr. Haley yesterday. I agree with the History, Examination, Assessment and Plan documented above with any addition or exceptions noted below.
[2019-08-28] MEDS: Ferrous Sulfate 325 MG TAB PO SCH ×2 (08:23→18:21)
[2019-08-28] MEDS: Enoxaparin Sodium 40 MG/0.4 ML SYRINGE SC SCH (08:23)
[2019-08-28] MEDS: Sulfameth/Trimethoprim DS 800-160mg TAB PO SCH ×2 (08:23→20:17)
[2019-08-28] MEDS: metFORMIN 500 MG TAB PO SCH (08:23)
[2019-08-28] MEDS: Ibuprofen 600 MG TAB PO PRN (09:56)
[2019-08-28] MEDS: Ondansetron ODT 4 MG TAB PO PRN (11:40)
[2019-08-28 12:08] LABS: Hemoglobin A2 1.9 % (1.8-3.2); Hemoglobin F 0 % (0.0-2.0); Interpretation Note: (.)
[2019-08-28 14:28] LABS: Reticulocyte Count 7.2 % (0.5-1.5)
[2019-08-28 14:33] LABS: Hemoglobin 8.4 g/dL (12.0-16.0); Mean Corpuscular HGB CONC 32.2 g/dL (32.0-36.0); Mean Corpuscular Hemoglobin 28.5 pg (27.0-31.0); Mean Corpuscular Volume 88.7 fL (78.0-98.0); Mean Platelet Volume 6.2 fL (7.4-10.4); Platelet Count 481 thou/uL (130-400); RBC Distribution Width 16.4 % (11.5-14.5); Red Blood Cell (RBC) Count 2.94 mill/uL (4.20-5.40); White Blood Cell (WBC) Count 19.7 thou/uL (4.8-10.8)
[2019-08-28 14:54] LABS: Anisocytosis SLIGHT = 6-15 cells (100X) (0-5/hpf); Band 9 % (5-11); Eosinophils 6 % (0-10); Lymphocytes 10 % (21-51); MDiff Complete? YES; Monocytes 6 % (0-10); Neutrophil 69 % (42-75); Platelet Morphology Comment Appears Increased; Polychromasia MODERATE = 3-4 cells (100X) (0-2/hpf)
--- NOTE | 2019-08-29 06:24 | PDOC.FM ---
- Subjective Subjective: Pt is doing well today. She states pain is controlled with tramadol. She feels confident she can take care of her wound changing at home with appropriate pain control. She denies fever, chills. - Objective Vital Signs & Weight: Vital Signs (12 hours) Temp Pulse Resp BP Pulse Ox 08/28/19 21:00 98.7 F 99 16 102/65 99 Weight Admit Weight 111.13 kg Weight 111.13 kg I&O: 08/27/19 08/28/19 08/29/19 06:59 06:59 06:59 Intake Total 1550 2155 1500 Balance 1550 2155 1500 Result Diagrams: 08/28/19 14:07 08/22/19 04:55 Phys Exam - Physical Examination Constitutional: NAD HEENT: PERRLA, moist MMs Respiratory: no wheezing, no rales, clear to auscultation bilateral Cardiovascular: RRR, no significant murmur Gastrointestinal: soft, non-tender Musculoskeletal: pulses present -: Surgical sites appropriately bandaged without drainage on pads Dx/Plan (1) Acute blood loss anemia Code(s): D62 - ACUTE POSTHEMORRHAGIC ANEMIA Status: Acute (2) Hidradenitis suppurativa Code(s): L73.2 - HIDRADENITIS SUPPURATIVA Status: Acute (3) Leukocytosis, unspecified Code(s): D72.829 - ELEVATED WHITE BLOOD CELL COUNT, UNSPECIFIED Status: Acute Qualifiers: Leukocytosis type: unspecified Qualified Code(s): D72.829 - Elevated white blood cell count, unspecified (4) Tobacco use Code(s): Z72.0 - TOBACCO USE Status: Acute - Plan Plan: Patient is a 23 yo female with complaint of groin pain is admitted for flare of Hidradrenitis suppurativa: Hidradenitis Suppurativa, Good Stage III -POD #3 from tissue resection of b/l armpits and b/l groin, L -breast. Wound vacs removed. -Consider starting adjunctive therapy including OCPs, Metformin started 08/27. Avoid spironolactone due to teratogenic effects. -Wound care consulted. They will educate pt daily while she is here and give her starter kit w/ supplies upon discharge. -Consulted gen surgEdgar. Appreciate recs. Bactrim. Pt may wash w/ soap and water. Dry dressings with supplies or kotex pads may be used. F/U w/ him in 2-3 weeks outpatient. -Will need Dermatology appt set up at discharge, will need close regular follow up -Pain control w/ Tramadol, Tylenol, and ibuprofen. -Pt taught how to perform daily dressing changes by nursing staff, wound care team. Unfortunately she only qualifies for outpt wound care which she will likely only be able to see 2-3 x week due to transportation. She will need to perform daily dressing changes. Will provide adequate pain medication as she state her only complaint is pain with dressing changes. She agrees with plan. At this time barrier to discharge is transportation home, her mother is undergoing chemo in [place], placed CM consult to see if we can provide transportation. Symptomatic Acute Blood Loss Anemia on Chronic Normocytic Anemia likely 2/2 Anemia of Chronic Disease -Hgb dropped gradually post surgery to 6.1. Transfused 1 unit pRBC on 08/26. Hgb stable 08/29. - Hgb electrophoresis normal, Retic elevated, Smear pending. Iron, TIBC, ferritin low. B12, folate WNL - Continue ferrous sulfate BID Prediabetes -A1C = 5.7%. Lipid panel WNL. - start 500 mg Metformin once a day. consider titrating dose up outpatient. Leukocytosis with left shift WBC 19.7 with downtrending neutrophils, bands WNL. No signs of acute infection , likely stress response to surgery. -Abx as above -monitor, trend VTE: SCD Diet: Regular Code: Full Dispo: Stable, discharge today with resources to properly care for healing surgical sites pending transportation. Addendum - Attending - Attending Attestation Date/Time: 08/29/19 7925 I personally evaluated the patient and discussed the management with Dr. Haley. I agree with the History, Examination, Assessment and Plan documented above with any addition or exceptions noted below. Stable for discharge.
[2019-08-29] MEDS: Sulfameth/Trimethoprim DS 800-160mg TAB PO SCH (08:51)
[2019-08-29] MEDS: metFORMIN 500 MG TAB PO SCH (08:51)
[2019-08-29] MEDS: Enoxaparin Sodium 40 MG/0.4 ML SYRINGE SC SCH (08:53)
[2019-08-29 13:13] VITALS: BP 98/57; TEMP 98.7
[2019-08-29] MEDS: Ferrous Sulfate 325 MG TAB PO SCH ×2 (19:46→19:47)
== END 2019-08-29 19:05 | disposition home or self-care (01) | DRG 854 ==
LOC: ERS 15:10 → OBSVTOIN 17:42 → SURG A 17:42
PROVIDERS: ADMIT Student in an Organized Health Care Education/Training Program; ATTEND Student in an Organized Health Care Education/Training Program
PROC: 0JBF0ZZ Excision of Left Upper Arm Subcutaneous Tissue and Fascia, Open Approach (ICD-10-PCS; principal; 2019-08-22)
PROC: 0JBD0ZZ Excision of Right Upper Arm Subcutaneous Tissue and Fascia, Open Approach (ICD-10-PCS; 2019-08-22)
PROC: 0JB70ZZ Excision of Back Subcutaneous Tissue and Fascia, Open Approach (ICD-10-PCS; 2019-08-22)
DX: A41.9 Sepsis, unspecified organism (principal); L02.412 Cutaneous abscess of left axilla; L02.411 Cutaneous abscess of right axilla; D62 Acute posthemorrhagic anemia; N76.4 Abscess of vulva; L02.31 Cutaneous abscess of buttock; L73.2 Hidradenitis suppurativa; F17.210 Nicotine dependence, cigarettes, uncomplicated; R73.03 Prediabetes; D63.8 Anemia in other chronic diseases classified elsewhere
CPT/HCPCS: 36415; 36416; 36430; 80053; 80061; 82607; 82728; 82747; 83021; 83036; 83540; 83550; 83605; 84703; 85007; 85014; 85018; 85025; 85027; 85046; 85060; 86850; 86900; 86901; 87040; 88304; 90471; 90686; 90715; 90732; 96365; 96367; 96375; G0008; G0009; J0131; J1100; J1170; J1650; J1885; J2001; J2270; J2405; J2543; J2550; J2704; J3010; J3370; J3490; J7050; J7512; P9016; Q0162; S0020

== ENCOUNTER 2019-09-13 05:55 | Emergency (ER) | payer OTHER ==
[2019-09-13] MEDS ORDERED: Ketorolac Tromethamine 30 MG/ML VIAL ONE (07:41)
== END 2019-09-13 08:12 | disposition home or self-care (01) ==
LOC: ERS 05:55
DX: G89.18 Other acute postprocedural pain (principal); R10.2 Pelvic and perineal pain; Z79.84 Long term (current) use of oral hypoglycemic drugs
CPT/HCPCS: 96372; 99283; J1885

== ENCOUNTER 2020-04-09 06:49 | Outpatient (CLI) | payer OTHER ==
[2020-04-09 14:29] LABS: #Basophils 0.1 thou/uL (0.0-0.2); #Eosinphils 0.2 thou/uL (0.0-0.7); #Lymphocytes 1.5 thou/uL (1.20-3.40); #Monocytes 0.4 thou/uL (0.11-0.59); #Neutrophils 7.2 thou/uL (1.40-6.50); %Basophils 0.8 % (0.0-1.0); %Eosinophils 1.8 % (0.0-10.0); %Lymphocytes 15.7 % (21.0-51.0); %Monocytes 4.6 % (0.0-10.0); %Neutrophils 77.1 % (42.0-75.0); Hemoglobin 11.8 g/dL (12.0-16.0); Mean Corpuscular Hemoglobin 30.3 pg (27.0-31.0); Mean Corpuscular Volume 94.6 fL (78.0-98.0); Mean Platelet Volume 7.6 fL (7.4-10.4); Platelet Count 320 thou/uL (130-400); RBC Distribution Width 14.9 % (11.5-14.5); Red Blood Cell (RBC) Count 3.89 mill/uL (4.20-5.40); White Blood Cell (WBC) Count 9.3 thou/uL (4.8-10.8)
[2020-04-09 14:52] LABS: BHCG - Serum Negative (NEGATIVE); Pregs Control Background? CLEAR/WHITE (CLR/WHITE); Pregs Control Bar Appear? YES (CONTROL BAR)
[2020-04-09 15:09] LABS: Anion Gap 13 mmol/L (10-20); BUN (Urea Nitrogen) 15 mg/dL (7.0-18.7); Calc. Creatinine Clearance 0 mL/min (70-130); Calcium 9.8 mg/dL (7.8-10.44); Carbon Dioxide 21 mmol/L (22-29); Chloride 110 mmol/L (98-107); Estimated GFR-MDRD Greater than 90; Glucose 106 mg/dL (70-105); Potassium 4.6 mmol/L (3.5-5.1); Sodium 139 mmol/L (136-145)
[2020-04-10 13:33] LABS: SARS-CoV-2 MS2 Positive; SARS-CoV-2 N Gene Negative; SARS-CoV-2 S Gene Negative; SARS-CoV-2 orf1ab Negative
== END 2020-04-09 06:50 | disposition home or self-care (01) ==
LOC: LABBT 06:49
PROVIDERS: ATTEND Specialist
DX: Z01.812 Encounter for preprocedural laboratory examination (principal); Z11.59 Encounter for screening for other viral diseases; K64.4 Residual hemorrhoidal skin tags
CPT/HCPCS: 80048; 84703; 85025; 87635; U0003

== ENCOUNTER 2021-10-09 14:04 | Emergency (ER) | payer SELFPAY ==
[2021-10-09 14:43] LABS: #Eosinphils 0.1 thou/uL (0.0-0.7); #Monocytes 0.7 thou/uL (0.11-0.59); #Neutrophils 6.9 thou/uL (1.40-6.50); %Basophils 0.3 % (0.0-1.0); %Eosinophils 0.8 % (0.0-10.0); %Lymphocytes 20.8 % (21.0-51.0); %Monocytes 7.4 % (0.0-10.0); %Neutrophils 70.8 % (42.0-75.0); Hemoglobin 13.2 g/dL (12.0-16.0); Mean Corpuscular HGB CONC 32.6 g/dL (32.0-36.0); Mean Corpuscular Hemoglobin 30.5 pg (27.0-31.0); Mean Corpuscular Volume 93.5 fL (78.0-98.0); Mean Platelet Volume 6.8 fL (7.4-10.4); Platelet Count 307 thou/uL (130-400); RBC Distribution Width 12.5 % (11.5-14.5); Red Blood Cell (RBC) Count 4.33 mill/uL (4.20-5.40); White Blood Cell (WBC) Count 9.7 thou/uL (4.8-10.8)
[2021-10-09 15:04] LABS: ALT (SGPT) 47 U/L (8-55); AST (SGOT) 38 U/L (5-34); Alkaline Phosphatase 117 U/L (40-110); Anion Gap 18 mmol/L (10-20); BUN (Urea Nitrogen) 10 mg/dL (7.0-18.7); Bilirubin, Total 0.4 mg/dL (0.2-1.2); Calc. Creatinine Clearance 0 mL/min (70-130); Calcium 9.4 mg/dL (7.8-10.44); Carbon Dioxide 21 mmol/L (22-29); Chloride 99 mmol/L (98-107); Globulin 4.8 g/dL (2.4-3.5); Glucose 285 mg/dL (70-105); Potassium 3.7 mmol/L (3.5-5.1); Protein, Total 8.8 g/dL (6.0-8.3); Sodium 134 mmol/L (136-145)
[2021-10-09] MEDS ORDERED: cefTRIAXone\\ROCEPHIN 1 GM VIAL ONE (16:22)
[2021-10-09] MEDS ORDERED: Insulin Regular 300 UNITS/3 ML VIAL ONE (16:24)
[2021-10-09 16:58] LABS: Actual Bicarbonate (HCO3v) 20 mEq/L (22-28); Analyzer IN Cardio ER; Base Excess -4.7 mEq/L (-2.0 to +3.0); Chloride (VBG) 98 mmol/L (98-106); Hemoglobin (Hb) 14.7 g/dL (11.7-15.5); Potassium (VBG) 3.53 mmol/L (3.70-5.30); Sodium 134.9 mmol/L (133-146); pH (venous) 7.35 (7.32-7.43)
[2021-10-09 17:07] LABS: Bacteria/HPF 2+ HPF (None Seen); Bilirubin Negative (Negative); Blood, Urine 1+ (Negative); Clarity Clear (Clear); Glucose, Urine (Dipstick) Greater than 1000 mg/dL (Negative); Ketone, Urine Greater than 150 mg/dL (Negative); Leukocyte 250 Leu/uL (Negative); Nitrite Negative (Negative); Protein, Urine (Dipstick) 20 mg/dL (Neg-Trace); Specific Gravity, Urine 1.041 (1.002-1.036); Urobilinogen Normal mg/dL (Less than 2); pH, Urine 5.5 (5.0-9.0)
[2021-10-09] MEDS ORDERED: Ketorolac Tromethamine 30 MG/ML VIAL ONE (17:18)
[2021-10-11 20:13] LABS: Chlamydia by PCR Not Detected (NotDetected); GC by PCR Not Detected (NotDetected)
== END 2021-10-09 19:17 | disposition home or self-care (01) ==
LOC: ERS 14:04
DX: E11.65 Type 2 diabetes mellitus with hyperglycemia (principal); N39.0 Urinary tract infection, site not specified; F17.210 Nicotine dependence, cigarettes, uncomplicated; Z79.4 Long term (current) use of insulin
CPT/HCPCS: 36415; 36416; 80053; 81003; 81015; 82010; 82805; 85025; 87086; 87480; 87491; 87510; 87591; 87660; 96365; 96375; J0696; J1815; J1885